=== PATIENT | female | born 1940 | race Caucasian/White ===

== ENCOUNTER 2017-04-25 07:50 | Day surgery (SDC) | payer MEDICARE ==
[2017-04-25] VITALS (9 sets, daily range): BP systolic 90–137; BP diastolic 52–78; PULSE 75–89; RESP 16–20; TEMP 97.3–98.6; O2SAT 92–96
[~2017-04-25] VITALS: Ht 161.3 cm; Wt 105.2 kg
[~2017-04-25 07:50] MED LIST: DILTCD240 PO; FENO67CA PO; LEVO75TA42 PO; LISI-363 PO; METO5TAB PO; OMEP20TA PO; PRAV40 PO; RANI150T PO; RIVA20 PO; TUSSSUS PO
[2017-04-25] MEDS ORDERED: METOPROLOL TARTRATE 25 MG TAB PO PRN (08:30)
[2017-04-25] MEDS ORDERED: INSULIN HUMAN REGULAR 1,000 UNITS/10 ML VIAL SQ PRN (08:30)
[2017-04-25] MEDS ORDERED: SODIUM CHLORID 0.9% 500 ML IV PRN (08:30)
[2017-04-25] MEDS ORDERED: LACTATED RINGER'S 1000 ML IV PRN (08:30)
[2017-04-25] MEDS ORDERED: LORazepam 1 MG TAB SL SCH (08:30)
[2017-04-25] MEDS ORDERED: CHLORHEXIDINE GLUCONATE 2 % 1 PACK (2 CLOTHS) TOPICAL PRN (08:30)
[2017-04-25] MEDS ORDERED: POVIDONE IODINE 5% (ANTISEPSIS KIT) 4 APPLICATIONS EACH NARE PRN (08:30)
[2017-04-25] MEDS ORDERED: LEVO112T2 PO (08:49)
[2017-04-25] MEDS ORDERED: HYDRLIQ11 PO (08:49)
[2017-04-25] MEDS ORDERED: MONT10TA4 PO (08:49)
[2017-04-25] MEDS ORDERED: FLEE5TAB PO (08:49)
[2017-04-25] MEDS ORDERED: PRAV40TA2 PO (08:49)
[2017-04-25] MEDS ORDERED: RANI150T PO (08:49)
[2017-04-25] MEDS ORDERED: XARE20TA PO (08:49)
[2017-04-25] MEDS ORDERED: LISI-515 PO (08:49)
[2017-04-25] MEDS ORDERED: ESCI10TA PO (08:49)
[2017-04-25] MEDS ORDERED: OMEP20TA PO (08:49)
[2017-04-25] MEDS ORDERED: DILT0.05 PO (08:49)
[2017-04-25] MEDS ORDERED: SIMV20TA PO (08:49)
[2017-04-25 08:55] LABS: AUTOMATED NEUTROPHIL # 3.8 TH/MM3 (1.8-7.7); BASOPHIL # 0.1 TH/MM3 (0-0.2); BASOPHIL % 0.9 % (0.0-2.0); EOSINOPHIL # 0.2 TH/MM3 (0-0.4); EOSINOPHIL % 3.7 % (0.0-4.0); HEMATOCRIT 43.1 % (35.0-46.0); HEMO FLAGS DIFF FINAL; LYMPH % 27.3 % (9.0-44.0); LYMPHOCYTE # 1.8 TH/MM3 (1.0-4.8); MEAN CELL VOLUME 89.2 FL (80.0-100.0); MEAN CORPUSCULAR HEMOGLOBIN 29.8 PG (27.0-34.0); MEAN CORPUSCULAR HGB CONC 33.4 % (32.0-36.0); MONO % 10.3 % (0.0-8.0); NEUT % 57.8 % (16.0-70.0); PLATELET COUNT 258 TH/MM3 (150-450); RED BLOOD COUNT 4.84 MIL/MM3 (4.00-5.30); RED CELL DISTRIBUTION WIDTH 14.3 % (11.6-17.2); WHITE BLOOD COUNT 6.6 TH/MM3 (4.0-11.0)
[2017-04-25 08:58] LABS: APTT (PATIENT) 30.8 SEC (24.3-30.1); PROTHROMBIN TIME - PATIENT 10.8 SEC (9.8-11.6)
[2017-04-25] MEDS: SODIUM CHLORID 0.9% 500 ML INJ 500 ML IV SCH ×2 (09:00→23:30)
[2017-04-25 09:17] LABS: BICARBONATE 25.7 MEQ/L (21.0-32.0); POTASSIUM 4.3 MEQ/L (3.5-5.1)
[2017-04-25] MEDS ORDERED: LEVOFLOXACIN 500 MG PREMIX INJ 100 ML IV ONE ×2 (10:12→11:00)
[2017-04-25] MEDS ORDERED: PROPOFOL 200 MG/20 ML AMP IV ONE (10:35)
[2017-04-25] MEDS ORDERED: HEPARIN-D5W INJ 250 ML ONE (10:39)
[2017-04-25] MEDS ORDERED: PROTAMINE SULFATE 50 MG/5 ML VIAL ONE (10:40)
[2017-04-25] MEDS ORDERED: fentaNYL CITRATE 250 MCG/5 ML AMP ONE (10:40)
[2017-04-25] MEDS ORDERED: HEPARIN SODIUM - IV 10,000 UNITS/10 ML VIAL ONE (10:40)
[2017-04-25] MEDS ORDERED: ISOPROTERENOL HCL 1 MG/5 ML AMP ONE (10:40)
[2017-04-25] MEDS ORDERED: HEPARIN-NS/PF INJ 500 ML ONE (10:49)
[2017-04-25] MEDS ORDERED: KETAMINE HCL 500 MG/10 ML VIAL ONE (10:50)
[2017-04-25] MEDS ORDERED: RESP: ALBUTEROL 2.5 MG/3 ML NEB (SCH) ONE ×2 (10:57→10:58)
[2017-04-25] MEDS ORDERED: HYDROCORTISONE SOD SUCCINATE 100 MG VIAL ONE (11:17)
[2017-04-25] MEDS ORDERED: SODIUM CHLOR 0.9% 250 ML INJ 250 ML IV PRN (13:45)
[2017-04-25] MEDS ORDERED: LIDOCAINE HCL 1% 50 ML VIAL INFIL PRN (13:45)
[2017-04-25] MEDS ORDERED: ATROPINE SULFATE 1 MG/ML VIAL IV PRN (13:45)
[2017-04-25] MEDS ORDERED: LORazepam 2 MG/ML VIAL IV PRN (13:45)
[2017-04-25] MEDS ORDERED: METOCLOPRAMIDE HCL 10 MG/2 ML VIAL IV PRN (13:45)
[2017-04-25] MEDS ORDERED: BISACODYL EC 5 MG TABEC PO PRN (13:45)
[2017-04-25] MEDS ORDERED: ONDANSETRON HCL 4 MG/2 ML VIAL IV PRN (13:45)
[2017-04-25] MEDS ORDERED: oxyCODONE/ACETAMINOPHEN 5 MG/325 MG TAB PO PRN ×2 (13:45)
--- NOTE | 2017-04-25 13:47 | CATHPROC ---
[employer] HIS Report Study Information Study Number Admission Scheduled Start Study Start [id number] Apr 25 2017 7:50AM 04/25/2017 Apr 25 2017 10:04AM [place] [facility] Electrophysiology Study Admit Source Facility Department Other [facility] - Medicaid Plan Compliance Director Physician and Clinical Staff Initial Irineo Burnett Wood Milling Machine Hand Acosta Adkins,RT(R) TECH2 Other Anesthesia, SCOURING PADS SUPERVISOR Recorder Sarah Noyola,RN Recorder Richa Garcia RN Scrub Jose Broderick,RT(R) Procedures Performed Procedure Location (Site) Vessel Name Ablation Procedure Cardioversion ICE CATHETER INSERT RA Atruim RF Ablation Isthmus Other RF Ablation LT. ATRIUM LT. ATRIUM Equipment Time Human Services Manager Description Size Mfg Part Number Used/Scraped NEEDLE, TRANSSEPTAL NRG 98 10:41 [facility]-[id number] Used C1 BIOSENSE SUMNER CATHETER, FarseerSIUS DS, 8MM, F [id number] 13:07 FR 7 Used INC. TYPE QUAD *[id number] [employer]/ EP 10:41 KIT, TRANSDUCER / AFIB [id number] Used PACER [id number] CATHETER, TACTICATH ABLAT BUNDLE 10:41 BUNDLE-ST. ULI Used 65 BUNDLE *[id number]- BUNDLE [id number] CATHETER, FR7 OPTIMA SPIRAL 10:41 BUNDLE-ST. ULI FR7 *[id number]- Used BUNDLE BUNDLE [id number] 10:41 BUNDLE-ST. ULI CATHETER, JSN, QUAD BUNDLE FR 5 *[id number]- Used BUNDLE [id number] 10:41 BUNDLE-ST. ULI CATHETER, JSN, QUAD BUNDLE FR 5 *[id number]- Used BUNDLE [id number] SET, COOL POINT TUBING 10:41 BUNDLE-ST. ULI *[id number]- Used BUNDLE BUNDLE SHEATH, FR8.5 STEERABLE SM 10:41 BUNDLE-ST. ULI 71CM [id number] Used 71CM BUNDLE COVER, TRANSDUCER CABLE 10:41 [employer] 612-113 Used ACUNAV 10:41 CORDIS/PACER SHEATH, FR10 LAVERNE 11CM FR 10 [id number] Used 10:41 CORDIS/PACER SHEATH, FR9 LAVERNE 11CM FR 9 [id number] Used [id number] 10:41 MIGSIF PACK, CCL CUSTOM * Used *[id number] 10:41 MEDLINE PACER LEAL, LIMB * 2530 *[id number] Used [id number] 10:41 [facility] MEDICAL SHEATH, FR4.5 PRELUDE 11CM FR 4.5 Used [id number] 10:41 NAMIC TUBING, HIGH PRESSURE 48" 48" Used *[id number] 10:41 NAMIC TUBING, HIGH PRESSURE 48" 48" Used *[id number] 10:41 [place] [employer],WARM AIR CCL * Used *[id number] 10:41 [facility] MEDICAL ELECTRODE KIT, ISHA X SURFACE * [id number] Used 10:41 [facility] MEDICAL SHEATH, EPS, FR6 FAST CATH FR [address] [id number] Used 10:41 [facility] MEDICAL SHEATH, EPS, FR7 FAST CATH FR [id number] Used 10:41 [facility] MEDICAL SHEATH, EPS, FR8 FAST CATH FR 8 [id number] Used CATHETER, ACUNAV FR10 ICE [id number] 11:47 DEMETRIO FR 10 Used (DEMETRIO) *[id number] [facility] PAD, ELECTROSURGICAL 10:41 * [id number] *[id number] Used SURGICAL GROUNDING (BLUE) Labs Hgb (g/dl) Hct (%) RBC (MIL/MM3) WBC (l/cumm) Platelets (thousands) 11.60-17.00 35.00-51.00 4.00-5.90 4.00-11.00 150.00-450.00 14.4 43.1 4.8 6.6 258 Glucose (mg/dl) BUN (mg/dl) Creatinine (mg/dl) BUN:Creatinine (1:x) 74.00-106.00 7.00-18.00 0.50-1.30 10.00-20.00 104 13 0.9 14.4 Na (meq/l) K (meq/l) Cl (meq/l) CO2 (mmol/L) Ca (mg/dl) 136.00-145.00 3.50-5.10 98.00-107.00 21.00-32.00 8.50-10.10 136 4.3 101 25.7 9 CPK-MB (ng/ML) 0.50-3.60 Not Drawn Medication Medication Total Dose (Bolus/Oral) Medication Total Dosage/Unit 1% XYLOCAINE 40 mL HEPARIN 57996 units PROTAMINE 40 mg Medications (Bolus/Oral) Medication Time Given Dosage/Unit Administered By Reason 1% XYLOCAINE 04/25/2017 11:38:31 AM 20 mL Irineo Mcfarlane 20 mL 1% XYLOCAINE given in lab by Irineo Mcfarlane in Left Groin via Subcutaneous. Ordered by Thien Mcfarlane 1% XYLOCAINE 04/25/2017 11:42:51 AM 20 mL Irineo Mcfarlane 20 mL 1% XYLOCAINE given in lab by Irineo Mcfarlane in Right Groin via Subcutaneous. Ordered by Jl Mcfarlane. HEPARIN 04/25/2017 11:47:10 AM 71730 units Irineo Mcfarlane 94160 units HEPARIN given in lab by Irineo Mcfarlane via Peripheral IV. Ordered by Irineo Mcfarlane. HEPARIN 04/25/2017 12:00:56 PM 2000 units Irineo Mcfarlane 2000 units HEPARIN given in lab by Irineo Mcfarlane via Peripheral IV. Ordered by Irineo Mcfarlane. HEPARIN 04/25/2017 12:14:59 PM 3000 units Irineo Mcfarlane 3000 units HEPARIN given in lab by Irineo Mcfarlane via Peripheral IV. Ordered by Irineo Mcfarlane. PROTAMINE 04/25/2017 1:46:48 PM 40 mg Irineo Mcfarlane 40 mg PROTAMINE given in lab by Irineo Mcfarlane via Peripheral IV. Ordered by Irineo Mcfarlane. Medication (Drip) Medication Time Given Dosage/Unit Concentration/Unit Diluent (ml) Solution HEPARIN DRIP 04/25/2017 12:04:06 PM 1000 units/hr 64884 units 250 D5W 1000 units/hr HEPARIN DRIP given in lab by Irineo Mcfarlane via Peripheral IV. Pump/Drip Flow = 10 ml/hr using D5[place] a [place] [address] units in 250 ml. Ordered by Irineo Mcfarlane. ISUPREL 04/25/2017 1:28:24 PM 20 mcg/min 1 mg 250 NaCl .9 20 mcg/min ISUPREL given in lab by Irineo Mcfarlane via Peripheral IV. Pump/Drip Flow = 300 ml/hr using NaCl .9 with a concentration of 1 mg in 250 ml. Ordered by Irineo Mcfarlane. Initial Case Assessment Cardiovascular HR Rhythm NIBP Chest Pain 77 a tach 112/58 0 Edema Present Skin color Skin None Normal Warm Dry Circulatory - Right Pulses Dorsalis Pedis 1 Scale (0,1,2,3,4,d) Circulatory - Left Pulses Dorsalis Pedis 1 Scale (0,1,2,3,4,d) Circulatory - Lower Extremities Color Lower Right Color Lower Left Normal Normal Neurological State Oriented to time-place- Alert Moves all extremities person Respiration - General Respiration Rate SpO2 (%) (B/min) 20 92 Final Case Assessment Cardiovascular HR Rhythm NIBP Chest Pain 93 SR 95/54 0 Edema Present Skin color Skin None Normal Warm Dry Circulatory - Right Pulses Dorsalis Pedis 1 Scale (0,1,2,3,4,d) Circulatory - Left Pulses Dorsalis Pedis 1 Scale (0,1,2,3,4,d) Neurological State Oriented to time-place- Alert Moves all extremities person Respiration - General Respiration Rate SpO2 (%) O2 (lpm) (B/min) 18 96 2 Chronological Log Time Study Chronological Log 10:35:41 Patient arrived via Bed. 10:41:17 Patient Name, D.O.B, / Armband Verified By R.N. Verbal Stimulation=2 Physical Stimulation=2 Airway=2 Respiration=2 TOTAL=8. (0=absent, 1=limite d, 2=present) 10:41:18 C/o back pain from pool injury 10:41:20 Pre-op and post- op instructions given; patient acknowledges understanding of instructions. Anesthesia at bedside. Assumes care of patient. Timothy SCOURING PADS SUPERVISOR SEE RECORDS FOR ALL MEDS AND VITALS D URING THE 10:41:21 DAY 10:41:29 Presedation assessment performed by Medicaid Plan Compliance Director RN. 10:41:30 Patient has been NPO for More than 6Hrs. 10:41:46 Skin Breakdown-none per patient 10:42:38 Patient Warmer Placed on the Table. 10:42:39 Disposable Defibrillator Pads Placed On Patient. 10:42:40 Pérez Prominences Protected 10:42:42 A # 20 IV was noted in the Antecubital (right). Grade = 0 10:42:43 A # 20 IV was noted in the Antecubital (left). Grade = 0 10:42:45 History and physical on the chart or being dictated. 11:01:41 Reference ECG taken 11:03:43 History and physical on the chart or being dictated. Assessment: Initial Case, HR=77 BPM, Rhythm=a tach, NGDN=594/58 mmhg, Chest Pain=0, Edema=None, Color=Normal, Skin = Warm, Dry Right Pulses: Alan Ped=1 Left Pulses: Alan Ped=1 11:03:44 Lower Right Extremities: Color=Normal Lower Left Extremities: Color=Normal Neurological: State=Alert, Ox3, SANDS Respiration: Resp=20 B/min, SpO2=92 % 11:04:06 Table restraints applied according to hospital policy 11:04:27 Bilateral groins prepped with 2% chlorhexidine, and with a 3 min. waiting time. 11:04:53 patient given breathing treatment by SCOURING PADS SUPERVISOR 11:10:36 Anesthesia present for intubation 11:14:00 paged 11:14:05 SH out. MM in. 11:21:47 MD responded 11:24:42 MD arrived. 11:31:57 [facility] rep present Time Out. Correct patient, procedure, procedure equipment, site and side verified with physicia n present. Time 11:34:00 concurred by MD, individual staff and SCOURING PADS SUPERVISOR. Time Out #2 - Consents verified, patient in correct position, all results are labled and displa yed, safety precautions 11:34:13 taken, antibiotics administered. Time out concurred by MD, individual staff and SCOURING PADS SUPERVISOR in procedu re 11:34:25 Case Start 11:37:32 GERMAN complete. 11:38:31 20 mL 1% XYLOCAINE given in lab by Irineo Mcfarlane in Left Groin via Subcutaneous. Ordered by Irineo Mcfarlane. 11:39:09 Vascular access was obtained in the Fem Vein (left). 11:39:18 Vascular access was obtained in the Fem Vein (left). 11:39:24 Vascular access was obtained in the Fem Vein (left). 11:39:31 Vascular access was obtained in the Fem Art (left). A SHEATH, FR4.5 PRELUDE 11CM FR 4.5 was advanced into the Fem Art (left) using the Modified Rae bailey technique. 11:39:49 0.9ns pressure bag connected. 11:42:21 A SHEATH, EPS, FR6 FAST CATH FR 6 was advanced into the Fem Vein (left) using the Modified Seldinger technique. 11:42:28 A SHEATH, EPS, FR7 FAST CATH FR 7 was advanced into the Fem Vein (left) using the Modified Seldinger technique. 11:42:32 A SHEATH, FR10 LAVERNE 11CM FR 10 was advanced into the Fem Vein (left) using the Modified S eldinger technique. 11:42:51 20 mL 1% XYLOCAINE given in lab by Irineo Mcfarlane in Right Groin via Subcutaneous. Ordered b Irineo Martinez. 11:42:59 Vascular access was obtained in the Fem Vein (right). 11:43:02 A SHEATH, EPS, FR8 FAST CATH FR 8 was advanced into the Fem Vein (right) using the Modified Seldinger technique. A CATHETER, JSN, QUAD BUNDLE FR 5 was advanced vis Fem Vein (left) and placed in the CS. Placem ent was visually 11:44:08 confirmed under fluoroscopy. A CATHETER, JSN, QUAD BUNDLE FR 5 was advanced vis Fem Vein (left) and placed in the HIS. Place ment was 11:45:19 visually confirmed under fluoroscopy. 11:45:24 CATHETER, ACUNAV FR10 ICE (DEMETRIO) FR 10 Was Postioned. 11:47:10 68998 units HEPARIN given in lab by Irineo Mcfarlane via Peripheral IV. Ordered by Ezra Mcfarlane. A SHEATH, FR8.5 STEERABLE SM 71CM BUNDLE 71CM was exchanged in the Fem Vein (right). This was n ecessary in 11:48:01 order for catheter support. 11:48:34 [place] in 11:50:37 A eps was advanced to the right atrium and passed through the septal wall to the left atriu m. 11:50:43 [place] out A CATHETER, FR7 OPTIMA SPIRAL BUNDLE FR7 was advanced vis Fem Vein (right) and placed in the LA . Placement 11:50:59 was visually confirmed under fluoroscopy. Mapping in progress. 11:52:39 Activated Clotting Time Drawn 12:00:08 ACT (Normal Range 90-180) = 323 12:00:56 2000 units HEPARIN given in lab by Irineo Mcfarlane via Peripheral IV. Ordered by Tino Mcfarlane 12:03:02 MM out. SH in. 1000 units/hr HEPARIN DRIP given in lab by Irineo Mcfarlane via Peripheral IV. Pump/Drip Flow = 10 ml/hr using D5W 12:04:06 [place] [address] units in 250 ml. Ordered by Irineo Mcfarlane. 12:04:32 MAPPING IN PROGRESS 12:08:42 MAPPING CATHETER REMOVED 12:10:47 Activated Clotting Time Drawn A CATHETER, TACTICATH ABLAT 65 BUNDLE was advanced vis Fem Vein (right) and placed in the LA. P lacement was 12:13:16 visually confirmed under fluoroscopy. 12:13:30 RF Ablation of the LT. ATRIUM with a CATHETER, TACTICATH ABLAT 65 BUNDLE. 12:14:33 ACT (Normal Range 90-180) = 315 12:14:59 3000 units HEPARIN given in lab by Irineo Mcfarlane via Peripheral IV. Ordered by Tino Mcfarlane y. 12:30:42 ACT (Normal Range 90-180) = 391 12:55:58 Activated Clotting Time Drawn 13:02:21 ACT (Normal Range 90-180) = 358 13:09:50 TACHYCATH REMOVED A CATHETER, CELSIUS DS, 8MM, F TYPE QUAD FR 7 was advanced vis Fem Vein (right) and placed in t he Isthmus. 13:10:06 Placement was visually confirmed under fluoroscopy. 13:10:20 RF Ablation of the Isthmus with a CATHETER, CELSIUS DS, 8MM, F TYPE QUAD FR 7. 13:24:08 ECG rhythm of AF noted. Patient cardioverted at 200 joules. Success SYNC 13:28:17 Ablation procedure performed: AFIB. 13:28:22 Implant Procedure was performed. 20 mcg/min ISUPREL given in lab by Irineo Mcfarlane via Peripheral IV. Pump/Drip Flow = 300 ml/hr using NaCl .9 with a 13:28:24 concentration of 1 mg in 250 ml. Ordered by Irineo Mcfarlane. 13:28:45 PACU called. Spoke to ACOSTA Assessment: Final Case, HR=93 BPM, Rhythm=SR, NIBP=95/54 mmhg, Chest Pain=0, Edema=None, Color= Normal, Skin = Warm, Dry Right Pulses: Alan Ped=1 13:33:40 Left Pulses: Alan Ped=1 Neurological: State=Alert, Ox3, SANDS Respiration: Resp=18 B/min, SpO2=96 %, O2=2 lpm 13:39:13 D/C ISUPREL 13:43:45 Catheter(s) removed without difficulty A SHEATH, FR9 LAVERNE 11CM FR 9 was exchanged in the Fem Vein (right). This was necessary in ord er to minimize 13:43:54 site leakage. 13:44:10 Sheath(s) left in place, will be removed in Holding Area 13:44:12 Case End 13:44:13 Sterile dressing applied to site 13:44:13 No case complications noted. 13:44:14 Cine recording checked. 13:44:15 Bedside Report will be given. 13:44:31 Defibrillator and ground pads removed. Skin intact. 13:46:48 40 mg PROTAMINE given in lab by Irineo Mcfarlane via Peripheral IV. Ordered by Irineo Mcfarlane. 13:49:34 [facility] - Contrast Media Used In Study Contrast Total Opened (mL) Total Used (mL) Total Wasted (mL) Unspecified 0 0 0 End Study - Maximum Contrast Load Max Contrast Load (mL) 585.1 End Study - Radiation Exposure Fluoro Time (minutes) 8.3 End Study - Patient Disposition Complications Transferred To Interventional Outcome No Telemetry Bed successful
[2017-04-25] MEDS ORDERED: DO NOT ADM ANY ANTICOAGULANT DRUGS PRN (14:05)
[2017-04-25] MEDS ORDERED: BACITRACIN OINT 0.9 GM PKT TOP ONE (16:00)
--- NOTE | 2017-04-25 17:03 | PD.CARD ---
Atrial Fibrillation Ablation PROCEDURE DATE: Apr 25, 2017 PROCEDURES PERFORMED: 1. Electrophysiology study on Isuprel infusion 2. CS cannulation 3. 3-D mapping 4. Transseptal approach 5. Right and left heart catheterization 6. Intracardiac echo 7. Radiofrequency ablation of atrial fibrillation 8. Pulmonary vein isolation 9. Posterior wall ablation 10. Mitral valve isolation 11. Mitral line creation 12. Left atrial tachycardia ablation 13. Roof line creation 14. Floor line creation 15. Anterior wall ablation 16. Right atrial tachycardia ablation 17. Atrial flutter ablation 16. Cardioversion INDICATIONS FOR THE PROCEDURE Ms. Cowart is a 76-year-old female with atrial fibrillation, very symptomatic, on anticoagulation referred for electrophysiology study and ablation. The risks, the nature and the benefits of the procedure were clearly stated to her. The risks include pneumothorax, cardiac perforation, stroke, need for open heart surgery and even . The patient understood and agreed to proceed. DESCRIPTION OF THE PROCEDURE IN DETAIL As written informed consent was obtained prior to esophageal echocardiogram, the patient was kept on the table where she was prepped and draped in the usual sterile fashion. Conscious sedation was initiated and maintained throughout the procedure by the anesthesiologist. Once sedation was verified, the right and left inguinal areas were anesthetized with 2% Xylocaine. Using modified Seldinger technique, the left femoral vein was cannulated on three occasions, three guidewires were advanced. Over the wire a 6, 7 and a 10-Ethiopian Hemaquet were advanced. Then the left femoral artery was cannulated on one occasion, one guidewire was advanced. Over the wire a 4-Ethiopian Hemaquet was advanced. Then the right femoral vein was cannulated on one occasion, one guidewire was advanced. Over the wire a 8-Ethiopian Hemaquet was advanced. Then under fluoroscopic guidance through the 6 and 7-Ethiopian Hemaquet, two 5-Ethiopian Pratima curved quadripolar electrophysiology catheters were advanced and placed around the His as well as coronary sinus. Basic interval was measured. The patient was in atrial fibrillation. Through the 10-Ethiopian Hemaquet, a Cordis Zhou AcuNav intracardiac echo catheter was advanced and placed at the right atrium. Multiple view was obtained. There is pericardial effusion, pulmonary vein was seen, atrial septal was visualized. Then the 8-Ethiopian Hemaquet in the right femoral vein was exchanged for Agilis transseptal sheath that was placed all the way to the superior vena cava. Through the sheath a Lebron needle was advanced, then the sheath, the dilator and the needle were progressed until foci engaged. Once engaged, the needle was advanced. RF was delivered for 2 seconds. I was able to cross into the left atrium. Once the needle crossed, the dilator was advanced. Once the dilator crossed, the sheath was advanced. Once the sheath crossed, the dilator and the needle were removed. At this point I did flood the system and fluid movement was seen in the left atrium the indicates the sheath is in good position. The patient already received 8,000 units of heparin. The goal is to keep an ACT around 350 during ablation. Then through the sheath a [facility] 20 pulse circumferential catheter was advanced. Using [employer] endocardial solution mapping system, a two- dimensional configuration of the left atrium was obtained. Points were taken at the left superior and inferior veins, right superior and inferior veins, mitral valve, and appendages. Then through the sheath a [facility]. Uli TactiCath 65cm 3.5mm irrigated tipped mapping and radiofrequency ablation catheter was advanced. Esophageal probe was placed temperature monitoring during ablation. When it increased to 0.5 degrees Celsius above baseline, I moved to a different area of the atrium. First I did isolate the left superior and inferior vein. I did make a big kenaitze around the veins. Posterior was ablated. Then a roof line was created, a floor line was created, a mitral line was isolated, then the mitral valve was isolated. At that point the patient was in left atrial tachycardia. I did create a line from the floor to the roof area, passing by the left atrial appendage. Then the right superior and inferior veins were isolated. I did remap the atrium. There is no significant signal in the left atrium atrium. I decided to proceed with right atrial mapping. I did isolated the coronary sinus. Then I did exchange the catheter for a F curve, 8 mm, mapping and radiofrequency ablation from cordGenomerater. I did proceed with atrial flutter ablatuion. Then atrial tach was mapped. Septal area was ablated. Early activation was seen close to the CS. At this point I decided to proceed with cardioversion. A 200 sync biphasic joule was delivered that converted the patient into sinus rhythm. At that point I did advance the circumferential catheter again into the vein. There was no signal into the vein, pacing from the vein showed no conduction to the atrium. Isuprel infusion was initiated at 10 mcg for over 10 minutes. No tachyarrhythmia was induced, post Isuprel no tachyarrhythmia was induced. At that point the procedure was complete. All catheters were removed, atrial septal sheath was exchanged for 9-Ethiopian Hemaquet, intracardiac echo showed no pericardial effusion. There is still good flow in the pulmonary vein. The patient is going to be transferred to the recovery room. No incident report. The patient tolerated the procedure. Blood loss was minimal. FINDINGS 1. Electrocardiogram: At baseline the patient was in atrial fibrillation, post procedure the patient was in sinus rhythm. 2. Basic interval: Base cycle length was around 520. Post ablation she was around 980 milliseconds. AH at 82 and HV at 62 milliseconds. 3. Tachyarrhythmia: Atrial fibrillation was mapped and ablated. Atrial tachycardia, atrial flutter were ablated. The ablation was successful. CONCLUSION Successful electrophysiology study, mapping, radiofrequency ablation of atrial fibrillation, left atrial tachycardia, atrial flutter, right atrial tachycardia ablation, pulmonary vein isolation, posterior ablation, mitral valve isolation, mitral line creation, roof line creation, floor line creation, left atrial tachycardia, and cardioversion. COMMENTS AND RECOMMENDATIONS The patient is going to be transferred to the telemetry unit. Will be observed and when stable can be discharged home. Irineo Mcfarlane MD Apr 25, 2017 17:03
[2017-04-25] MEDS: PANTOPRAZOLE SOD 20 MG DELAYED RELEASE TAB PO SCH (20:15)
[2017-04-25] MEDS ORDERED: MONTELUKAST SODIUM 10 MG TAB PO SCH (21:00)
[2017-04-25] MEDS ORDERED: FAMOTIDINE 20 MG TAB PO SCH (21:00)
[2017-04-25] MEDS ORDERED: PRAVASTATIN SOD 40 MG TAB PO SCH (21:00)
[2017-04-26] VITALS (11 sets, daily range): BP systolic 93–110; BP diastolic 60–68; PULSE 73–84; RESP 16–18; TEMP 97–97.4; O2SAT 96–98
[2017-04-26] MEDS ORDERED: LEVOTHYROXINE SODIUM 112 MCG TAB PO SCH (06:00)
[2017-04-26 06:03] LABS: APTT (PATIENT) 28.2 SEC (24.3-30.1); PROTHROMBIN TIME - PATIENT 11.2 SEC (9.8-11.6)
--- NOTE | 2017-04-26 08:01 | PD.CARD.PN ---
Subjective Subjective Remarks Feels okay. Objective Medications Current Medications Medications (Trade) Dose Ordered Sig/Radha Route Start Time Stop Time Status Last Admin Lactated Ringer's 1,000 ml @ 30 mls/hr Q24H PRN IV 04/25/17 08:30 04/28/17 08:29 Sodium Chloride 500 ml @ 30 mls/hr [id number] PRN IV 04/25/17 08:30 04/28/17 08:29 (NS 500 ml Inj) 500 ml @ 30 mls/hr [id number] IV 04/25/17 09:00 04/25/17 09:00 (Percocet 5-325 Mg) 1 tab Q4H PRN PO 04/25/17 13:45 (Percocet 5-325 Mg) 2 tab Q4H PRN PO 04/25/17 13:45 04/25/17 20:16 (Ativan Inj) 0.5 mg UNSCH PRN IV 04/25/17 13:45 04/26/17 13:44 04/25/17 14:20 Atropine Sulfate 0.5 mg 0.5 mg UNSCH PRN IV 04/25/17 13:45 (NS 250 ml Inj) 250 ml @ 500 mls/hr ONCE PRN IV 04/25/17 13:45 04/26/17 13:44 (Reglan Inj) 10 mg Q4H PRN IV 04/25/17 13:45 (Zofran Inj) 4 mg Q4H PRN IV 04/25/17 13:45 (Xylocaine 1% Inj (50 ml)) 10 ml UNSCH PRN INFIL 04/25/17 13:45 04/26/17 13:44 (Dulcolax Ec) 5 mg DAILY PRN PO 04/25/17 13:45 (Cardizem Cd) 180 mg DAILY PO 04/26/17 09:00 (Lexapro) 10 mg DAILY PO 04/26/17 09:00 (Synthroid) 112 mcg DAILY@06 PO 04/26/17 06:00 04/26/17 05:29 (Prinivil) 20 mg DAILY PO 04/26/17 09:00 (Singulair) 10 mg HS PO 04/25/17 21:00 04/25/17 20:16 (Xarelto) 20 mg DAILY@1600 PO 04/26/17 14:00 (Protonix) 20 mg BID PO 04/25/17 21:00 04/25/17 20:15 (Pepcid) 20 mg HS PO 04/25/17 21:00 04/25/17 20:15 (Pravachol) 40 mg HS PO 04/25/17 21:00 04/25/17 20:15 Miscellaneous Information ALL NURSING DEPARTME... UNSCH PRN .XX 04/25/17 14:05 04/26/17 14:04 (Pneumovax-23 Inj) 25 mcg ONCE ONCE IM 04/27/17 10:00 04/27/17 10:01 Vital Signs / I&O Vital Signs Date Time Temp Pulse Resp B/P Pulse Ox O2 Delivery O2 Flow Rate FiO2 04/26/17 07:34 Nasal Cannula 3.00 04/26/17 07:34 77 04/26/17 06:00 79 04/26/17 05:00 76 04/26/17 04:00 78 04/26/17 03:20 97.4 75 16 93/60 96 04/26/17 03:20 96 Nasal Cannula 3.00 04/26/17 03:00 73 04/26/17 02:00 75 04/26/17 01:00 74 04/26/17 00:00 73 04/25/17 23:20 98 Nasal Cannula 4.00 04/25/17 23:20 94 Nasal Cannula 3.00 04/25/17 23:20 97.3 75 16 90/52 94 04/25/17 23:18 85 Room Air 04/25/17 23:00 75 04/25/17 22:00 84 04/25/17 21:00 86 04/25/17 20:00 86 04/25/17 20:00 96 Nasal Cannula 3.00 04/25/17 19:45 97.5 82 18 122/70 96 04/25/17 19:45 98 Nasal Cannula 4.00 04/25/17 19:00 86 04/25/17 16:30 98.6 85 20 108/58 93 04/25/17 15:15 86 13 113/65 94 Nasal Cannula 4 04/25/17 15:00 86 13 119/68 94 Nasal Cannula 4 04/25/17 14:45 87 13 124/65 95 Nasal Cannula 4 04/25/17 14:30 87 13 130/71 96 Nasal Cannula 4 04/25/17 14:11 97.6 94 17 131/69 96 Simple Mask 6 04/25/17 08:45 98.5 89 18 137/78 92 I/O 04/25/17 04/25/17 04/25/17 04/26/17 04/26/17 04/26/17 07:00 15:00 23:00 07:00 15:00 23:00 Intake Total 1200 ml 240 ml 720 ml Output Total 1850 ml 1700 ml 125 ml Balance -650 ml -1460 ml 595 ml Intake Oral 240 ml 720 ml IV Total 0 ml Other 1200 ml Output Urine Total 1850 ml 1700 ml 125 ml Bladder Scan Volume Amount 0 ml # Bowel Movements 0 Physical Exam GENERAL: Well-nourished, well-developed patient. SKIN: Warm and dry. Groin sites soft with no bruising or bleeding. HEAD: Normocephalic. EYES: No scleral icterus. No injection or drainage. NECK: Supple, trachea midline. No JVD or lymphadenopathy. CARDIOVASCULAR: Regular rate and rhythm without murmurs, gallops, or rubs. RESPIRATORY: Breath sounds equal bilaterally. No accessory muscle use. GASTROINTESTINAL: Abdomen soft, non-tender, nondistended. EXTREMITIES: No cyanosis, or edema. NEUROLOGICAL: Awake, alert, and oriented x 3. Non-focal. Laboratory Laboratory Tests Test 04/25/17 04/26/17 08:25 05:25 White Blood Count 6.6 TH/MM3 Red Blood Count 4.84 MIL/MM3 Hemoglobin 14.4 GM/DL Hematocrit 43.1 % Mean Corpuscular Volume 89.2 FL Mean Corpuscular Hemoglobin 29.8 PG Mean Corpuscular Hemoglobin 33.4 % Concent Red Cell Distribution Width 14.3 % Platelet Count 258 TH/MM3 Mean Platelet Volume 7.4 FL Neutrophils (%) (Auto) 57.8 % Lymphocytes (%) (Auto) 27.3 % Monocytes (%) (Auto) 10.3 % Eosinophils (%) (Auto) 3.7 % Basophils (%) (Auto) 0.9 % Neutrophils # (Auto) 3.8 TH/MM3 Lymphocytes # (Auto) 1.8 TH/MM3 Monocytes # (Auto) 0.7 TH/MM3 Eosinophils # (Auto) 0.2 TH/MM3 Basophils # (Auto) 0.1 TH/MM3 CBC Comment DIFF FINAL Differential Comment Prothrombin Time 10.8 SEC 11.2 SEC Prothromb Time International 1.0 RATIO 1.0 RATIO Ratio Activated Partial 30.8 SEC 28.2 SEC Thromboplast Time Sodium Level 136 MEQ/L Potassium Level 4.3 MEQ/L Chloride Level 101 MEQ/L Carbon Dioxide Level 25.7 MEQ/L Anion Gap 9 MEQ/L Blood Urea Nitrogen 13 MG/DL Creatinine 0.93 MG/DL Estimat Glomerular Filtration 58 ML/MIN Rate Random Glucose 104 MG/DL Calcium Level 9.0 MG/DL Blood Type O POSITIVE Antibody Screen NEGATIVE Assessment and Plan Problem List: (1) Atrial fibrillation with RVR Assessment and Plan: Normal sinus rhythm on telemetry. Continue Xarelto. (2) S/P ablation of atrial fibrillation Assessment and Plan: Normal sinus rhythm status post ablation. Groin sites stable. Discharge home, follow-up with Dr. Mcfarlane in 3 weeks per my discussion with him. Jaimee Marin Apr 26, 2017 08:01
[2017-04-26] MEDS: PANTOPRAZOLE SOD 20 MG DELAYED RELEASE TAB PO SCH (08:44)
[2017-04-26] MEDS ORDERED: DILTIAZEM-CD 180 MG CAP ER PO SCH (09:00)
[2017-04-26] MEDS ORDERED: LISINOPRIL 20 MG TAB PO SCH (09:00)
[2017-04-26] MEDS ORDERED: ESCITALOPRAM OXALATE 10 MG TAB PO SCH (09:00)
[2017-04-26] MEDS ORDERED: PRAVASTATIN SOD 40 MG TAB PO SCH (09:00)
[2017-04-26] MEDS ORDERED: RIVAROXABAN 20 MG TAB PO SCH (14:00)
--- NOTE | 2017-04-26 14:55 | EKG ---
Date Performed: 04/25/2017 Time Performed: 14:31:49 PTAGE: 76 years EKG: Sinus rhythm WITH FIRST DEGREE AV BLOCK MARKED LEFT AXIS DEVIATION POSSIBLE ANTERIOR MYOCARDIAL INFARCTION , PROB ABLY OLD ABNORMAL ECG PREVIOUS TRACING : 03/24/2016 05.05 Compared to prior tracing no significant change DOCTOR: Shelton Nowak Interpretating Date/Time 04/26/2017 14:52:42
--- NOTE | 2017-04-26 15:01 | EKG ---
Date Performed: 04/25/2017 Time Performed: 08:56:06 PTAGE: 76 years EKG: Atrial flutter. Left axis deviation Possible anteroseptal infarct - age undetermined Genera lized low QRS voltages Abnormal ECG PREVIOUS TRACING : 03/24/2016 05.05 Compared to the previous tracing ATRIAL FLUTTER IS NEW DOCTOR: Shelton Nowak Interpretating Date/Time 04/26/2017 15:01:00
[2017-04-27] MEDS ORDERED: PNEUMOCOCCAL POLYVALENT INJ 25 MCG/0.5 ML SYR IM ONE (10:00)
--- NOTE | 2017-04-27 14:50 | EKG ---
Date Performed: 04/26/2017 Time Performed: 05:37:26 PTAGE: 76 years EKG: Sinus rhythm WITH BORDERLINE 1ST DEGREE A-V BLOCK LEFT AXIS DEVIATION POOR R WAVE PROGRESSION- PROBABLE NORMAL VA RIANT ANTERIOR T WAVE CHANGES ARE NONSPECIFIC LOW QRS VOLTAGES IN LIMB LEADS ABNORNMAL ECG PREVIOUS TRACING : 04/25/2017 14.31 DOCTOR: Adama Lawler Interpretating Date/Time 04/27/2017 14:48:39
== END 2017-04-26 11:11 | disposition home or self-care (01) ==
LOC: HDIC 07:50 → HCAT 07:50 → HCIS 15:27 → HCAT 04-26 11:11
PROVIDERS: ATTEND Internal Medicine Interventional Cardiology
DX: I48.1 Persistent atrial fibrillation (principal); I48.92 Unspecified atrial flutter; I47.1 Supraventricular tachycardia; I10 Essential (primary) hypertension; Z79.01 Long term (current) use of anticoagulants
CPT/HCPCS: 00537; 80048; 85002; 85025; 85610; 85730; 86850; 86900; 86901; 92960; 93005; 93312; 93320; 93325; 93613; 93623; 93656; 93657; 93662; C1730; C1731; C1732; C1759; C1766; C2630; J1644; J1720; J1956; J2060; J2720; J3010; J7040; J7613

== ENCOUNTER → 2017-09-10 | Outpatient (CLI) | payer MEDICARE ==
[~2017-09-10] MED LIST changes: +DILT0.05 PO; -DILTCD240 PO; +ESCI10TA PO; -FENO67CA PO; +FLEE5TAB PO; +HYDRLIQ11 PO; +LEVO112T2 PO; -LEVO75TA42 PO; -LISI-363 PO; +LISI-515 PO; -METO5TAB PO; +MONT10TA4 PO; -OMEP20TA PO; +OMEP20TA93 PO; -PRAV40 PO; +PRAV40TA2 PO; -RIVA20 PO; -TUSSSUS PO; +XARE20TA PO
[2017-09-10 16:02] LABS: HEMATOCRIT 40.9 % (35.0-46.0); MEAN CELL VOLUME 91.2 FL (80.0-100.0); MEAN CORPUSCULAR HEMOGLOBIN 30.9 PG (27.0-34.0); MEAN CORPUSCULAR HGB CONC 33.8 % (32.0-36.0); PLATELET COUNT 249 TH/MM3 (150-450); RED BLOOD COUNT 4.48 MIL/MM3 (4.00-5.30); RED CELL DISTRIBUTION WIDTH 13.8 % (11.6-17.2); REVIEW FLAG FINAL; WHITE BLOOD COUNT 6.9 TH/MM3 (4.0-11.0)
[2017-09-10 16:32] LABS: ALT (GPT) 20 U/L (10-53); ANION GAP 5 MEQ/L (5-15); AST (GOT) 15 U/L (15-37); BLOOD UREA NITROGEN 17 MG/DL (7-18); CHLORIDE 99 MEQ/L (98-107); GLOMERULAR FILTRATION RATE 70 ML/MIN (>89); GLUCOSE,FASTING 93 MG/DL (74-99); MAGNESIUM 1.9 MG/DL (1.5-2.5); POTASSIUM 4.8 MEQ/L (3.5-5.1); SODIUM (NA) 132 MEQ/L (136-145)
[2017-09-10 16:40] LABS: ALKALINE PHOSPHATASE 62 U/L (45-117); TOTAL BILIRUBIN ADULT 0.3 MG/DL (0.2-1.0)
== END ==
LOC: CLAB 15:45
PROVIDERS: ATTEND Internal Medicine Critical Care Medicine
DX: R94.6 Abnormal results of thyroid function studies (principal); E78.1 Pure hyperglyceridemia; E83.42 Hypomagnesemia
CPT/HCPCS: 36415; 80053; 83735; 84100; 84439; 84443; 85027